=== PATIENT | female | born 1995 | race Caucasian/White ===

== ENCOUNTER 2017-07-14 21:43 | Emergency (ER) | payer BC, OTHER ==
[2017-07-14] MEDS ORDERED: diphenhydrAMINE 50 MG/ML VIAL ONE (22:41)
[2017-07-14] MEDS ORDERED: Metoclopramide HCl 10 MG/2 ML VIAL ONE (22:41)
== END 2017-07-15 00:43 | disposition home or self-care (01) ==
LOC: SCSER 21:43
DX: O21.9 Vomiting of pregnancy, unspecified (principal); Z3A.17 17 weeks gestation of pregnancy
CPT/HCPCS: 96361; 96365; 96375; J1200; J2765

== ENCOUNTER 2017-12-05 15:36 | Inpatient (IN) | payer OTHER ==
[~2017-12-05 15:36] MED LIST: Lidocaine 2% PF Inj 2 ML VIAL ONE
[2017-12-05] MEDS ORDERED: Misoprostol 100 MCG TAB ONE (16:23)
[2017-12-05 17:01] VITALS: BMI 31.1
[2017-12-05] MEDS ORDERED: Ondansetron HCl/PF 4 MG/2 ML Vial IVP PRN (17:07)
[2017-12-05] MEDS ORDERED: NS / Oxytocin 40 units/1000ml 1,000 ML IV PRN (17:07)
[2017-12-05] MEDS ORDERED: Acetaminophen 500 MG TAB PO PRN (17:07)
[2017-12-05] MEDS ORDERED: Lidocaine 1% (PF) 30 ML VIAL SC PRN (17:07)
[2017-12-05] MEDS ORDERED: Butorphanol Tartrate 1 MG/ML VIAL SLOW IVP PRN (17:07)
[2017-12-05] MEDS ORDERED: Zolpidem Tartrate 5 MG TAB PO PRN (17:07)
[2017-12-05] MEDS ORDERED: Promethazine HCl 25 MG/ML VIAL IM PRN (17:07)
[2017-12-05] MEDS ORDERED: Meperidine HCl/PF 25 MG/ML VIAL IM/IV PRN (17:07)
[2017-12-05 17:19] LABS: Hemoglobin 12.7 g/dL (12.0-16.0); Mean Corpuscular HGB CONC 34.9 g/dL (32.0-36.0); Mean Corpuscular Hemoglobin 31.7 pg (27.0-31.0); Mean Corpuscular Volume 90.7 fL (78.0-98.0); Mean Platelet Volume 8.6 fL (7.4-10.4); Platelet Count 175 thou/uL (130-400); RBC Distribution Width 12.5 % (11.5-14.5); Red Blood Cell (RBC) Count 4.01 mill/uL (4.20-5.40); White Blood Cell (WBC) Count 9.4 thou/uL (4.8-10.8)
[2017-12-05] MEDS: Lactated Ringer's 1,000 ML IV SCH ×2 (17:58→22:28)
[2017-12-05 17:59] LABS: HBSAg Index 0.19 S/CO (0-0.99); Hep B Surf Ag Non-Reactive S/CO (NonReactive)
[2017-12-05 18:10] LABS: Syphilis Antibody Nonreactive (Nonreactive); Syphilis Antibody Index 0.04 S/CO (<1.00 Non-Reactive)
[2017-12-05] MEDS: Misoprostol 100 MCG TAB VAG SCH (21:02)
[2017-12-06] MEDS ORDERED: Fentanyl 4 mcg/Bup 0.1% Cadd 100 ML ONE ×2 (02:20→09:12)
[2017-12-06] MEDS ORDERED: NS w/ Oxytocin 10 units 500 ML ONE (04:34)
[2017-12-06] MEDS ORDERED: NS / Oxytocin 40 units/1000ml 1,000 ML ONE (08:15)
[2017-12-06] MEDS ORDERED: Bicitra 30 ML UDCUP ONE (10:48)
[2017-12-06] MEDS ORDERED: CEFAZOLIN/Water 2 GM/20 ML SYRINGE ONE (10:48)
[2017-12-06] MEDS ORDERED: Ketorolac Tromethamine 30 MG/ML VIAL ONE ×2 (11:36→14:32)
[2017-12-06] MEDS ORDERED: PROPOFOL 200 MG/20 ML VIAL ONE (11:36)
[2017-12-06] MEDS ORDERED: Lidocaine 2% MPF 10 ML AMP (For Epidural Use) ONE (11:36)
[2017-12-06] MEDS: Lactated Ringer's 1,000 ML IV SCH (12:17)
[2017-12-06] MEDS ORDERED: ePHEDrine/0.9% NaCl/PF SYRINGE 50 mg/10 ml ONE (12:57)
[2017-12-06] MEDS ORDERED: PHENYLEPHRINE-NS 100 MCG/ML 10 ML SYRINGE ONE (12:57)
[2017-12-06] MEDS ORDERED: Lidocaine 2% 10 ML INJ ONE (12:58)
[2017-12-06] MEDS ORDERED: HYDROmorphone 2 MG/ML VIAL SLOW IVP PRN (13:10)
[2017-12-06] MEDS ORDERED: Naloxone HCl 0.4 mg/ml Vial IVP PRN ×2 (13:10)
[2017-12-06] MEDS ORDERED: diphenhydrAMINE 50 MG/ML VIAL IVP PRN ×2 (13:10→18:01)
[2017-12-06] MEDS ORDERED: Promethazine HCl 25 MG SUPP PR PRN ×2 (13:10→18:01)
[2017-12-06] MEDS ORDERED: Ondansetron HCl/PF 4 MG/2 ML Vial IVP PRN ×4 (13:10→18:01)
[2017-12-06] MEDS ORDERED: Ketorolac Tromethamine 30 MG/ML VIAL IVP PRN (13:10)
[2017-12-06] MEDS ORDERED: Eucerin (Mineral Oil/Petrolatum,White) 30 gm Jar TOP PRN (13:10)
[2017-12-06] MEDS ORDERED: Naloxone HCl 0.4 mg/ml Vial IV PRN ×4 (13:10→18:01)
[2017-12-06] MEDS ORDERED: Promethazine HCl 25 MG/ML VIAL IM PRN ×2 (13:10→18:01)
[2017-12-06] MEDS ORDERED: L&D-Morphine 4 MG/ML VIAL SLOW IVP PRN (13:10)
[2017-12-06] MEDS ORDERED: Meperidine HCl/PF 25 MG/ML VIAL SLOW IVP PRN (13:10)
[2017-12-06] MEDS ORDERED: Ketorolac Tromethamine 30 MG/ML VIAL IVP SCH (13:15)
[2017-12-06] MEDS ORDERED: Communication Order-Pharmacy FS SCH (13:15)
[2017-12-06] MEDS ORDERED: Promethazine HCl 25 MG/ML VIAL ONE (13:42)
[2017-12-06] MEDS ORDERED: Fentanyl 100 MCG/2 ML VIAL ONE (13:42)
[2017-12-06] MEDS ORDERED: Sodium Chloride 0.9% 10 ML ONE (13:44)
[2017-12-06] MEDS ORDERED: PROPOFOL 20 ML ONE ×2 (13:48→14:09)
[2017-12-06] MEDS ORDERED: Simethicone Chewable 80 MG TAB PO PRN (14:44)
[2017-12-06] MEDS ORDERED: Adacel (T-DAP) 0.5 ML VIAL IM ONE (14:44)
[2017-12-06] MEDS ORDERED: diphenhydrAMINE 25 MG CAP PO PRN (14:44)
[2017-12-06] MEDS ORDERED: Lactated Ringer's 1,000 ML IV SCH (14:45)
[2017-12-06] MEDS ORDERED: NS / Oxytocin 40 units/1000ml 1,000 ML IV SCH (14:45)
[2017-12-06] MEDS ORDERED: Meperidine HCl/PF 25 MG/ML VIAL ONE (16:14)
[2017-12-06] MEDS: Misoprostol 100 MCG TAB VAG SCH ×2 (16:24→18:53)
[2017-12-06] MEDS ORDERED: Hydrocerin (Eucerin) Cream 120 gm Jar TOP PRN (18:01)
[2017-12-06] MEDS ORDERED: NO PO,IM,IV OR SC NARCOTICS FOR 12HR EXCEPT BY ANESTHESIA PO SCH (18:01)
[2017-12-06] MEDS: Ketorolac Tromethamine 30 MG/ML VIAL IVP PRN (20:41)
[2017-12-06] MEDS: Docusate Calcium (SURFAK) 240 MG CAP PO SCH (20:42)
[2017-12-07] MEDS ORDERED: HYDROcodone/Acetaminophen 5/325 mg Tablet PO PRN ×4 (01:15→05:00)
[2017-12-07] MEDS ORDERED: Butorphanol Tartrate 1 MG/ML VIAL SLOW IVP PRN ×2 (01:15→05:00)
[2017-12-07] MEDS ORDERED: Meperidine HCl/PF 25 MG/ML VIAL IM/IV PRN ×2 (01:15→05:00)
[2017-12-07] MEDS ORDERED: Sodium Chloride 0.9% 10 ML ONE (05:17)
[2017-12-07] MEDS: Ketorolac Tromethamine 30 MG/ML VIAL IVP PRN (05:19)
[2017-12-07 07:59] LABS: Hemoglobin 8.8 g/dL (12.0-16.0); Platelet Count 140 thou/uL (130-400)
[2017-12-07] MEDS: Prenatal Vitamin 1 TAB PO SCH (09:14)
[2017-12-07] MEDS: Docusate Calcium (SURFAK) 240 MG CAP PO SCH ×2 (09:15→21:14)
[2017-12-07] MEDS: Ibuprofen 800 MG TAB PO SCH ×2 (13:46→21:14)
[2017-12-08] MEDS: Ibuprofen 800 MG TAB PO SCH ×3 (06:05→22:02)
[2017-12-08] MEDS: Docusate Calcium (SURFAK) 240 MG CAP PO SCH ×2 (08:04→22:02)
[2017-12-08] MEDS: Prenatal Vitamin 1 TAB PO SCH (08:04)
[2017-12-09] MEDS: Ibuprofen 800 MG TAB PO SCH (05:04)
[2017-12-09 07:34] VITALS: BP 132/82; TEMP 98.5
[2017-12-09] MEDS: Docusate Calcium (SURFAK) 240 MG CAP PO SCH (09:21)
[2017-12-09] MEDS: Prenatal Vitamin 1 TAB PO SCH (09:21)
== END 2017-12-09 12:30 | disposition home or self-care (01) | DRG 788 ==
LOC: L&D 15:36 → 3SW 12-06 17:24
PROVIDERS: ADMIT Obstetrics & Gynecology; ATTEND Obstetrics & Gynecology
PROC: 10D00Z1 Extraction of Products of Conception, Low, Open Approach (ICD-10-PCS; principal; 2017-12-06)
DX: O13.4 Gestational [pregnancy-induced] hypertension without significant proteinuria, complicating childbirth (principal); Z3A.37 37 weeks gestation of pregnancy; Z37.0 Single live birth; O32.9XX0 Maternal care for malpresentation of fetus, unspecified, not applicable or unspecified; Z88.2 Allergy status to sulfonamides; Z91.048 Other nonmedicinal substance allergy status
CPT/HCPCS: 36415; 51702; 85014; 85018; 85027; 85049; 86780; 86850; 86900; 86901; 87340; J1885; J2001; J2175; J2405; J2550; J2704; J3010; Q9968